=== PATIENT | female | born 1990 | race American Indian/Alaskan Native ===

== ENCOUNTER 2018-05-09 08:41 | Inpatient (IN) | payer OTHER ==
[~2018-05-09] VITALS: Ht 165.1 cm; Wt 92.0 kg
[2018-05-09] MEDS ORDERED: EXPECTA PRENAT1 EACH PO (12:10)
--- NOTE | 2018-05-09 18:39 | PR ---
[facility] [address] [place] [address] Signed Progress Notes IP Datetime Report Generated by YULISSA: 05/09/2018 18:39 PROGRESS NOTES: [id number] Impression: Slow Progression of Labor Plan: Continue present management; Anticipate Vaginal Delivery VITAL SIGNS: [id number] Vital Signs: Reviewed; Within Normal Limits EXAM: [id number] Dilatation: 7.0 Effacement: 80 Station: -2 Uterine Contractions: every 2-3 minutes MEMBRANES: [id number] Membrane Status: Ruptured Amniotic Fluid Color: Clear Comments: Getting more uncomfortable, tried N2O but became very lethargic after only 2 inhalations, so stopped N20. Does not want Epidural. Discussed Pitocin augmentation, but patient does not want any Pitocin. Will continue observation a while longer, but may need it if arrest of active phase Fetus A: [id number] FHR Baseline: 145 Variability: Moderate 6-25bpm Accelerations: 15X15 Presentation: Vertex Fetus B: [id number] Signing Physician: Jose Vaca MD Copies: ~ *Electronically Signed* 05/09/18 1839 JOSE VACA MD PATIENT NAME: KIM WIN PROGRESS NOTE DATE OF : 89 PHYSICIAN: JOSE VACA MD RPT #: [id number] REPORT IS CONFIDENTIAL AND NOT TO BE RELEASED WITHOUT AUTHORIZATION
--- NOTE | 2018-05-10 12:48 | PR ---
[facility] [address] [place] [address] Signed PP Progress Notes Datetime Report Generated by CPN: 05/10/2018 12:48 SUBJECTIVE: [id number] Pain: Within normal limits Nausea/Vomiting: Denies Vital Signs: [id number] Vital Signs: Reviewed; Within Normal Limits Notable Details: PP Hgb/Hct = 12.3/37.0 EXAM: [id number] Abdomen/Uterus: Normal Lochia: Normal Extremities: Normal IMPRESSION/PLAN/PROCEDURES: [id number] Impression: Normal progression Plan: Continue present management Procedures: None Progress Notes: Doing well, without complaint. Up and showered without complaint, tolerating food well. Signing Physician: Samuel Vaca MD Copies: ~ *Electronically Signed* 05/10/18 1248 SAMUEL VACA MD PATIENT NAME: KIM WIN PROGRESS NOTE DATE OF : 89 PHYSICIAN: SAMUEL VACA MD RPT #: [id number] REPORT IS CONFIDENTIAL AND NOT TO BE RELEASED WITHOUT AUTHORIZATION
--- NOTE | 2018-05-11 13:10 | PR ---
[facility] [address] [facility] [place] [address] Signed PP Progress Notes Datetime Report Generated by CPN: 05/11/2018 13:10 SUBJECTIVE: [id number] Pain: Within normal limits Nausea/Vomiting: Denies Vital Signs: [id number] Vital Signs: Reviewed; Within Normal Limits Notable Details: PP Hgb/Hct = 12.3/37.0 EXAM: [id number] Abdomen/Uterus: Normal Lochia: Normal Extremities: Normal IMPRESSION/PLAN/PROCEDURES: [id number] Impression: Normal progression Plan: Discharge Procedures: None Progress Notes: Doing well, without complaint, ready to go home. Signing Physician: Samuel Vaca MD Copies: ~ *Electronically Signed* 05/11/18 1310 SAMUEL VACA MD PATIENT NAME: KIM WIN PROGRESS NOTE DATE OF : 89 PHYSICIAN: SAMUEL VACA MD RPT #: [id number] REPORT IS CONFIDENTIAL AND NOT TO BE RELEASED WITHOUT AUTHORIZATION
== END 2018-05-11 13:20 | disposition home or self-care (01) | DRG 807 ==
LOC: FBCO 08:41 → FBC 09:52
PROVIDERS: ADMIT General Practice
PROC: 10E0XZZ Delivery of Products of Conception, External Approach (ICD-10-PCS; principal; 2018-05-09)
PROC: 0HQ9XZZ Repair Perineum Skin, External Approach (ICD-10-PCS; 2018-05-09)
PROC: 0UQMXZZ Repair Vulva, External Approach (ICD-10-PCS; 2018-05-09)
DX: O70.0 First degree perineal laceration during delivery (principal); Z37.0 Single live birth; Z3A.37 37 weeks gestation of pregnancy; Z88.0 Allergy status to penicillin; Z86.19 Personal history of other infectious and parasitic diseases
CPT/HCPCS: 36415; 82565; 84450; 84520; 84550; 85025; 85027; J2590; J7120

== ENCOUNTER 2021-07-17 07:44 | Emergency (ER) | payer OTHER ==
[~2021-07-17] VITALS: Ht 165.1 cm; Wt 81.7 kg
[~2021-07-17 07:44] MED LIST: EXPECTA PRENAT1 EACH PO
== END 2021-07-17 10:10 | disposition home or self-care (01) ==
LOC: ED 07:44
DX: O20.9 Hemorrhage in early pregnancy, unspecified (principal); Z88.0 Allergy status to penicillin; Z91.010 Allergy to peanuts; Z79.899 Other long term (current) drug therapy; Z3A.01 Less than 8 weeks gestation of pregnancy
CPT/HCPCS: 36415; 76801; 76817; 81001; 84702; 84703; 85025; 86900; 86901; 99284-25

== ENCOUNTER 2022-08-16 19:54 | Inpatient (IN) | payer OTHER ==
[~2022-08-16] VITALS: Ht 165.1 cm; Wt 99.8 kg
[2022-08-16 22:46] VITALS: BP 135/79
--- NOTE | 2022-08-17 06:23 | PR ---
[facility] [address] [place], [place] [address] Signed Progress Notes IP Datetime Report Generated by CPN: 08/17/2022 06:23 PROGRESS NOTES: [id number] Impression: Normal Progression of Labor; Reassuring Heart Rate Procedures: Artificial ROM; Sterile Vag Exam Plan: Continue Present Management; Anticipate Vaginal Delivery Informed Consent Obtain: Vaginal Delivery VITAL SIGNS: [id number] Vital Signs: Reviewed; Within Normal Limits EXAM: [id number] Dilatation: 7.0 Effacement: 90 Station: -2 Contractions: q 3-4 min MEMBRANES: [id number] Comments: Pt seen and examined. Uncomfortable w/ contractions. Discussed progress and contractions, and discussed expectant management vs AROM. Pt desires AROM which was performed w/out difficulty for small amount of clear fluid. Mother and baby tolerated well. Anticipate soon FETUS A: [id number] FHR Baseline: 120 Variability: Moderate 6-25bpm Accelerations: 15X15 Decelerations: None FHR Category: Category I Presentation: Vertex Comments on Fetus A: No evidence of metabolic acidosis FETUS B: [id number] Signing Physician: Wilbert Childs DO Copies: ~ *Electronically Signed* 08/17/22622 WILBERT CHILDS (ZOIE) DO PATIENT NAME: KIM WIN PROGRESS NOTE DATE OF : 89 PHYSICIAN: WILBERT CHILDS (JD) DO RPT #: [id number] REPORT IS CONFIDENTIAL AND NOT TO BE RELEASED WITHOUT AUTHORIZATION
--- NOTE | 2022-08-18 08:42 | PR ---
[facility] [address] [facility] [place], [place] [address] Signed PP Progress Notes Datetime Report Generated by CPN: 08/18/2022 08:42 SUBJECTIVE: [id number] Pain: Within Normal Limits Nausea/Vomiting: Denies Flatus: Yes Bowel Movement: No Vital Signs: [id number] Vital Signs: Reviewed; Within Normal Limits Cardiovascular: Normal Respiratory: Normal Abdomen/Uterus: Normal Lochia: Normal Vulva/Perineum: Not Done Breasts: Not Done CVA Tenderness: Normal Extremities: Normal Incision: Not Applicable Progress: Normal Exam Comments: Fundus firm U-2 nontender IMPRESSION/PLAN/PROCEDURES: [id number] Impression: Normal Progression Plan: Discharge Progress Notes: Pt seen and examined. Doing well. Ambulating, voiding, and tolerating full diet. Pain and lochia minimal. well. No fevers/chills or other concerns. Desires d/c home. Planning vasectomy for pp contraception. No other questions or concerns. Desires d/c home. Reviewed d/c instructions in details. All questions answered. Signing Physician: Wilbert Childs DO Copies: ~ *Electronically Signed* 08/18/22 0842 WILBERT CHILDS (ZOIE) DO PATIENT NAME: KIM WIN PROGRESS NOTE DATE OF : 89 PHYSICIAN: WILBERT CHILDS (JD) DO RPT #: [id number] REPORT IS CONFIDENTIAL AND NOT TO BE RELEASED WITHOUT AUTHORIZATION
== END 2022-08-18 10:05 | disposition home or self-care (01) | DRG 807 ==
LOC: FBCO 19:54 → FBC 20:00
PROVIDERS: ADMIT Obstetrics & Gynecology; ATTEND Obstetrics & Gynecology
PROC: 10E0XZZ Delivery of Products of Conception, External Approach (ICD-10-PCS; principal; 2022-08-16)
PROC: 10907ZC Drainage of Amniotic Fluid, Therapeutic from Products of Conception, Via Natural or Artificial Opening (ICD-10-PCS; 2022-08-16)
PROC: 0KQM0ZZ Repair Perineum Muscle, Open Approach (ICD-10-PCS; 2022-08-16)
DX: O99.214 Obesity complicating childbirth (principal); Z37.0 Single live birth; O70.1 Second degree perineal laceration during delivery; Z67.40 Type O blood, Rh positive; Z3A.38 38 weeks gestation of pregnancy; O99.62 Diseases of the digestive system complicating childbirth; K31.84 Gastroparesis; Z98.890 Other specified postprocedural states; Z79.899 Other long term (current) drug therapy
CPT/HCPCS: 36415; 59025; 85027; 86850; 86900; 86901; A9270; J2590; J7121